=== PATIENT | male | born 1940 | race Hispanic/Latino ===

== ENCOUNTER 2017-03-27 07:51 | Emergency (ER) | payer MEDICARE ==
[2017-03-27 08:02] VITALS: BMI 22.8
[2017-03-27 08:16] VITALS: RESP 18
[2017-03-27 08:31] LABS: ADD MANUAL DIFF? NO
[2017-03-27 08:36] LABS: BASO # 0.03 K/mm3 (0.0-2.0); BASO % 0.2 % (0.0-3.0); EOS # 0.1 (0.0-0.7); EOS % 0.4 % (1.5-5.0); GRAN # 8.74 (1.4-6.5); GRAN % 72.5 % (50.0-68.0); HEMATOCRIT 47.1 % (42.0-52.0); LYMPH # 2.2 (1.2-3.4); MEAN CELL VOLUME 88.4 fL (80.0-105.0); MEAN CORPUSCULAR HEMOGLOBIN 30.6 pg (25.0-35.0); MEAN CORPUSCULAR HGB CONC 34.6 g/dl (31.0-37.0); MEAN PLATELET VOLUME 10.1 fl (7.0-11.0); MONO # 1.1 (0.1-0.6); MONO % 8.9 % (1.0-6.0); PLATELET COUNT 157 10^3/uL (120.0-450.0); RED CELL DISTRIBUTION WIDTH 15.2 % (11.5-14.5); WHITE BLOOD COUNT 12.1 10^3/ul (4.5-11.0)
[2017-03-27 08:43] LABS: ALKALINE PHOSPHATASE 97 U/L (38-133); ALT/SGPT 28 U/L (7-56); AST/SGOT 23 U/L (15-59); BILIRUBIN,TOTAL 1.7 mg/dL (0.2-1.3); BLOOD UREA NITROGEN 13 mg/dL (7-21); CALCIUM 9.5 mg/dL (8.4-10.5); CARBON DIOXIDE 21 mmol/L (21-33); CHLORIDE 105 mmol/L (98-107); GFR AFRICAN-AMERICAN > 60; GLUCOSE,RANDOM 107 mg/dL (70-110); SODIUM 141 mmol/L (132-148); TOTAL PROTEIN 8.6 g/dL (5.8-8.3)
--- NOTE | 2017-03-27 08:44 | CT ---
PROCEDURE: CT HEAD WITHOUT CONTRAST. HISTORY: r/o ICH COMPARISON: None available. TECHNIQUE: Axial computed tomography images were obtained through the head/brain without intravenous contrast. Radiation dose: Total exam DLP = 320 mGy-cm. This CT exam was performed using one or more of the following dose reduction techniques: Automated exposure control, adjustment of the mA and/or kV according to patient size, and/or use of iterative reconstruction technique. FINDINGS: HEMORRHAGE: No intracranial hemorrhage. BRAIN: No mass effect or edema. 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 VENTRICLES: Unremarkable. No hydrocephalus. CALVARIUM: Unremarkable. PARANASAL SINUSES: Unremarkable as visualized. No significant inflammatory changes. MASTOID AIR CELLS: Unremarkable as visualized. No inflammatory changes. OTHER FINDINGS: None. IMPRESSION: Old infarcts as discussed above. No intracranial hemorrhage.
[2017-03-27 08:54] LABS: TROPONIN I 0.08 ng/mL
--- NOTE | 2017-03-27 09:32 | ED PDOC ---
Arrival/HPI - General Chief Complaint: Weakness/Neurological Deficit Time Seen by Provider: 03/27/17 07:54 Historian: Patient - History of Present Illness Narrative History of Present Illness (Text): 03/617 09:32 A 77 year old male, whose past medical history includes 2 CVAs, was brought into the emergency department by EMS for confusion. Patient reports [place] and experienced a headache yesterday. Patient currently is asymptomatic and denies any complaints. Patient denies any fever, chills, nausea , vomiting, diarrhea, abdominal pain, chest pain, shortness of breath, headache , dizziness or any other complaints. PMD: Non-H provider Time/Duration: Prior to Arrival Symptom Course: Resolved Quality: Other Context: Other Past Medical History - Provider Review Nursing Documentation Reviewed: Yes - Cardiac Hx Cardiac Disorders: Yes Hx Atrial Fibrillation: Yes Hx Cardiac Arrhythmia: Yes Hx Hypertension: Yes - Pulmonary Hx Respiratory Disorders: No - Neurological HX Cerebrovascular Accident: Yes - Psychiatric Hx Substance Use: No - Surgical History Hx Cardiac Catheterization: Yes Hx Coronary Artery Bypass Graft: Yes - Anesthesia Hx Anesthesia: Yes Hx Anesthesia Reactions: No Hx Malignant Hyperthermia: No Family/Social History - Physician Review Nursing Documentation Reviewed: Yes Family/Social History: No Known Family HX Smoking Status: Never Smoked Hx Alcohol Use: Yes Frequency of alcohol use: Socially Hx Substance Use: No Allergies/Home Meds Allergies/Adverse Reactions: Allergies No Known Allergies Allergy (Verified 03/27/17 07:58) Home Medications: Home Meds Medication Instructions Recorded Confirmed Unobtainable 03/27/17 03/27/17 Review of Systems - Physician Review All systems were reviewed & negative as marked: Yes - Review of Systems Constitutional: absent: Fevers, Night Sweats Respiratory: absent: SOB Cardiovascular: absent: Chest Pain Gastrointestinal: absent: Abdominal Pain, Diarrhea, Nausea, Vomiting Genitourinary Male: absent: Dysuria, Frequency, Hematuria, Urinary Output Changes Neurological: Headache (Headache yesterday, which completely resolved). absent : Dizziness Psychiatric: Other (Confusion, resolved) Physical Exam Vital Signs Reviewed: Yes Vital Signs Temp Pulse Resp BP Pulse Ox 03/27/17 10:00 98.1 F 81 18 140/86 95 03/27/17 08:14 98.4 F 82 18 151/68 H 98 Temperature: Afebrile Blood Pressure: Hypertensive Pulse: Regular Respiratory Rate: Normal Appearance: Positive for: Well-Appearing, Non-Toxic, Comfortable Pain Distress: None Mental Status: Positive for: Alert and Oriented X 3 - Systems Exam Head: Present: Atraumatic, Normocephalic Pupils: Present: PERRL Extroacular Muscles: Present: EOMI Conjunctiva: Present: Normal Mouth: Present: Moist Mucous Membranes Neck: Present: Normal Range of Motion Respiratory/Chest: Present: Clear to Auscultation, Good Air Exchange. No: Respiratory Distress, Accessory Muscle Use Cardiovascular: Present: Regular Rate and Rhythm, Normal S1, S2. No: Murmurs Abdomen: Present: Normal Bowel Sounds. No: Tenderness, Distention, Peritoneal Signs Back: Present: Normal Inspection Upper Extremity: Present: Normal Inspection. No: Cyanosis, Edema Lower Extremity: Present: Normal Inspection. No: Edema Neurological: Present: GCS=15, CN II-XII Intact, Speech Normal Skin: Present: Warm, Dry, Normal Color. No: Rashes Psychiatric: Present: Alert, Oriented x 3, Normal Insight, Normal Concentration Medical Decision Making ED Course and Treatment: 03/27/17 09:31 Impression: A 77 year old male brought in for confusion. Patient is alert and oriented x 3. Patient notes he experienced a headache yesterday. Plan: -- Chest xray -- EKG -- Labs -- Urine culture and Urinalysis -- Reassess and disposition Progress Notes: EKG shows a-fib at 97 BPM with normal axis, PVCs. Interpreted by me. Report Date : 03/27/2017 08:36:16 PROCEDURE: CT HEAD WITHOUT CONTRAST. Dictator : Kirk Lomax MD FINDINGS: HEMORRHAGE: No intracranial hemorrhage. BRAIN: No mass effect or edema. 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 VENTRICLES: Unremarkable. No hydrocephalus. CALVARIUM: Unremarkable. PARANASAL SINUSES: Unremarkable as visualized. No significant inflammatory changes. MASTOID AIR CELLS: Unremarkable as visualized. No inflammatory changes. IMPRESSION: Old infarcts as discussed above. No intracranial hemorrhage. - Lab Interpretations Lab Results: 03/27/17 08:30 03/27/17 08:30 Lab Results 03/27/17 09:56: Urine Color Yellow, Urine Appearance Clear, Urine pH 6.0, Ur Specific [place] 1.020, Urine Protein 30 H, Urine Glucose (UA) Negative, Urine Ketones Negative, Urine Blood Trace-intact H, Urine Nitrate Negative, Urine Bilirubin Negative, Urine Urobilinogen 0.2, Ur Leukocyte Esterase Negative, Urine RBC 0 - 2, Urine WBC 0 - 2, Urine Bacteria Small 03/27/17 09:28: Urine Opiates Screen Negative, Urine Methadone Screen Negative, Ur Barbiturates Screen Negative, Ur Phencyclidine Scrn Negative, Ur Amphetamines Screen Negative, U Benzodiazepines Scrn Negative, U Oth Cocaine Metabols Negative, U Cannabinoids Screen Negative 03/27/17 08:30: Alcohol, Quantitative < 10 03/27/17 08:30: Sodium 141, Potassium 4.0, Chloride 105, Carbon Dioxide 21, Anion Gap 19, BUN 13, Creatinine 1.0, Est GFR ( Amer) > 60, Est GFR (Non- Af Amer) > 60, Random Glucose 107, Calcium 9.5, Total Bilirubin 1.7 H, AST 23, ALT 28, Alkaline Phosphatase 97, Troponin I 0.08, Total Protein 8.6 H, Albumin 4.3, Globulin 4.3, Albumin/Globulin Ratio 1.0 L 03/27/17 08:30: WBC 12.1 H, RBC 5.33, Hgb 16.3, Hct 47.1, MCV 88.4, MCH 30.6, MCHC 34.6, RDW 15.2 H, Plt Count 157, MPV 10.1, Gran % 72.5 H, Lymph % (Auto) 18.0 L, [place] % (Auto) 8.9 H, Eos % (Auto) 0.4 L, Baso % (Auto) 0.2, Gran # 8.74 H, Lymph # 2.2, [place] # 1.1 H, Eos # 0.1, Baso # 0.03 I have reviewed the lab results: Yes - RAD Interpretation Radiology Orders: 03/27/17 08:06 HEAD W/O CONTRAST [CT] Stat 03/27/17 08:07 CHEST ONE VIEW [RAD] Stat - Scribe Statement The provider has reviewed the documentation as recorded by the Scribe Alfreda Guzman Provider Scribe Attestation: All medical record entries made by the Scribe were at my direction and personally dictated by me. I have reviewed the chart and agree that the record accurately reflects my personal performance of the history, physical exam, medical decision making, and the department course for this patient. I have also personally directed, reviewed, and agree with the discharge instructions and disposition. Disposition/Present on Arrival - Present on Arrival Any Indicators Present on Arrival: No History of DVT/PE: No History of Uncontrolled Diabetes: No Urinary Catheter: No History of Decub. Ulcer: No History Surgical Site Infection Following: None - Disposition Have Diagnosis and Disposition been Completed?: Yes Diagnosis: Weakness Disposition: HOME/ ROUTINE Disposition Time: 10:15 Patient Plan: Discharge Condition: GOOD Discharge Instructions (ExitCare): Weakness (ED) Additional Instructions: Thank you for letting us take care of you today. Your provider was Dr. Echavarria. You were treated for weakness. The emergency medical care you received today was directed at your acute symptoms. If you were prescribed any medication, please fill it and take as directed. It may take several days for your symptoms to resolve. Return to the Emergency Department if your symptoms worsen, do not improve, or if you have any other problems. Please contact your doctor or call one of the physicians/clinics you have been referred to that are listed on the Patient Visit Information form that is included in your discharge packet. Bring any paperwork you were given at discharge with you along with any medications you are taking to your follow up visit. Our treatment cannot replace ongoing medical care by a primary care provider (PCP) outside of the emergency department. Thank you for allowing the [facility] team to be part of your care today. Follow up with your doctor in 2 days. Return to the emergency room if you have any concerns. Referrals: [facility] Hodges, [Non-Staff] - Follow up with primary
[2017-03-27 10:11] LABS: URINE BILIRUBIN NEGATIVE (NEGATIVE); URINE BLOOD TRACE-INTACT (NEGATIVE); URINE GLUCOSE (UA) NEGATIVE (NEGATIVE); URINE KETONE NEGATIVE (NEGATIVE); URINE LEUKOCYTE ESTERASE NEGATIVE Leu/uL (NEGATIVE); URINE PROTEIN 30 mg/dL (<30 mg/dL); URINE UROBILINOGEN 0.2 E.U./dL (<1 E.U./dL)
[2017-03-27 10:13] LABS: URINE APPEARANCE CLEAR (CLEAR); URINE COLOR YELLOW (YELLOW)
[2017-03-27 10:35] LABS: URINE BACTERIA SMALL (NEG); URINE RBC 0 - 2 /hpf (0-2); URINE WBC 0 - 2 /hpf (0-6)
[2017-03-27 10:53] VITALS: BP 140/86; PULSE 81; TEMP 98.1; O2SAT 95
--- NOTE | 2017-03-27 10:54 | RAD ---
PROCEDURE: CHEST RADIOGRAPH, 1 VIEW HISTORY: r/o infiltrate COMPARISON: None available. FINDINGS: LUNGS: Bibasilar infiltrates and possible effusions. PLEURA: No pneumothorax or pleural fluid seen. CARDIOVASCULAR: Normal. OSSEOUS STRUCTURES: No significant abnormalities. VISUALIZED UPPER ABDOMEN: Normal. OTHER FINDINGS: None. IMPRESSION: Bibasilar infiltrates and possible effusions.
--- NOTE | 2017-03-27 15:33 | CARD ---
APPROVED REPORT EKG Measurement Heart [id number] <Conclusion> A Fib, PVCs vs aberrancy ST & T wave abnormality, consider inferior ischemia Abnormal ECG
== END 2017-03-27 11:02 | disposition home or self-care (01) ==
LOC: EDSEX → ED 07:51
DX: R53.1 Weakness (principal); I10 Essential (primary) hypertension; Z86.73 Personal history of transient ischemic attack (TIA), and cerebral infarction without residual deficits
CPT/HCPCS: 70450; 71010; 80053; 81001; 84484; 85025; 87086; 93005; 99285; G0480